=== PATIENT | female | born 1985 | race Hispanic/Latino ===

== ENCOUNTER → 2016-12-08 | Day surgery (SDC) | payer SELFPAY ==
[2016-12-08] VITALS (9 sets, daily range): BP systolic 91–117; BP diastolic 44–84; PULSE 58–84; RESP 14–17; O2SAT 98–99
[~2016-12-08] VITALS: Ht 157.5 cm; Wt 66.3 kg
[~2016-12-08] MED LIST: Acetaminophen IV 1,000 MG in IV Premix 1 EACH IV PRN; Dexamethasone 4 mg/mL Inj IVPUSH PRN; EPHEDrine Sulfate 50 mg/mL Inj IVPUSH PRN; HYDROmorphone 0.5 mg/0.5 mL iSecure Syringe IVPUSH PRN; HYDROmorphone 1 mg/mL Inj IVPUSH PRN; IBUP-1827 PO; IODINE TOPICAL ONE; Lactated Ringer's 1,000 ML IV ONE; Lactated Ringer's 1,000 ML IV SCH; Lactated Ringer's 500 ML IV PRN; MetoCLOpramide 5 mg/mL 2 mL Inj IVPUSH PRN; OXYC1TAB24 PO; Ondansetron 2 mg/mL 2 mL Inj IVPUSH PRN; Ondansetron 2 mg/mL 2 mL Inj ONE; Phenylephrine 10,000 mCg/mL Inj IVPUSH PRN; Propofol 10,000 mCg/mL 20 mL Inj ONE; fentaNYL-PF 50 mCg/mL 2 mL Inj IVPUSH PRN; fentaNYL-PF 50 mCg/mL 2 mL Inj ONE
--- NOTE | 2016-12-08 13:55 | PCM.HPANE ---
Patient Data Surgeon Admitting Provider: Attending Provider:Graeme Romero MD Primary Care Physician:Teresa Falk MD Other Provider:[facility] Reason for Visit SISSY-3 Ht/WT & BMI Height (Feet): 5 Height (Inches): 2.00 Weight (Kilograms): 66.300 Body Mass Index 26.00 Allergies Coded Allergies: No Known Allergies (Verified , 11/30/16) Past Anesthesia History Anesthesia History: Denies:: Abnormal Airway, Anesthesia Reactions, Difficult Intubation, Fam Anesthesia Reaction Diabetes History Hx Diabetes?: No MRSA MRSA: No Medications Hypertension Medication: No Home Meds Incl Beta Vinicius: No No Active Prescriptions or Reported Meds History History of ENT Problems?: No HEENT History: Denies:: Abnormal Airway Cataracts Difficult Intubation Dysphagia Glaucoma Hearing Problem Sinus Problem TMJ Denture Type: None Teeth Condition: Within Normal Limits Hx of Heart Problems?: Yes Cardiovascular History: Positive for:: Cardiac Surgery (surgery as child for murmur- at age 4) Heart Murmur (prior hx) Denies:: AICD Abdominal Aortic Aneurism Atrial Fibrillation Edema Hypertension Irregular Heartbeat Pacemaker Peripheral Vascular Rheumatic Fever Thrombophlebitis Valvular Heart Disease (echo 2017- ef 60-65%) Other History/Comments ECHO for heart mumur, benign, normal activity with limitations Hx of Respiratory Problem?: No Respiratory History: Denies:: Asthma COPD Emphysema Oxygen Administration Pneumonia Tuberculosis Use of C-PAP Machine Hx Neurologic Problems?: No Neurological History: Denies:: Alzheimer's Disease CVA Headaches Multiple Sclerosis Parkinson's Disease Seizures Hx of GI Problems?: No Hx of Problems?: No Genitourinary History: Denies:: Kidney Stones Urinary Tract Infection Female Hx: Denies:: Currently (NEG U PREG) Problems with Breasts? Skin History: Denies:: History Skin Disorders? Pressure Ulcers Hx Musculoskeletal Problems?: No Musculoskeletal History: Denies:: Back Injury Degenerative Joint Fibromyalgia Joint Replacement Musculoskeletal Trauma Osteoarthritis Rheumatoid Arthritis Hx of Psycho/Social Problems?: No Psycho Social History: Denies:: Anxiety Hx Depression Hx Surgeries?: Yes (heart surgery as child, partial thyroidectomy) Hx Any Other Health Problems?: Yes Other History: Positive for:: Cancer (SISSY current admission problem) Denies:: Thyroid Disease History Blood Transfusions: Positive for:: Accept Blood Products? Denies:: Blood Transfusions Hx Diabetes: No Hx Alcohol Use: NoHx Substance Use: NoHave You Smoked inLast 12 mo: No Stop/Bang S-Snoring: Do You Snore Loudly: No T-Tired: feel tired, fatigued: No O-Obsered: Observed not breath: No P-Blood Pressure: treated: No B- Body Mass Index > 35 kg/m2: No A- Age over 50: No N- Neck Large Circumference: No G- Gender Male: No CINDY Total Score: 0 Risk Assessment Category Category 1A: Patient has history of documented sleep apnea, and HAS NOT received any narcotic, sedative or anesthesia administration during this stay. Category 1B: Patient has history of documented sleep apnea, and HAS received any narcotic , sedative or anesthesia administration during this stay Category 2: Patient has SUSPECTED Obstructive Sleep Apnea, and HAS received any narcotic , sedative or anesthesia administration during this stay. Category 3: Patient has SUSPECTED Obstructive Sleep Apnea and HAS NOT received narcotic, sedative or anesthesia administration during this stay. Category 4: Outpatient in Procedural Areas with known sleep apnea or who screen positive for High Risk via the STOP/BANG questionnaire. Exam Exam Vital Signs Vital Signs Date Time Temp Pulse Resp B/P Pulse Ox O2 Delivery O2 Flow Rate FiO2 12/08/16 11:40 36.1 61 15 104/68 99 Room Air General Appearance: Alert, Oriented X3, Cooperative HEENT/AIRWAY: MP 2 Lungs: Clear to Auscultation Heart: Exam Unremarkable Meds/Labs/Diagnostics Admission Meds Current Medications Lactated Ringer's (Lr) 1,000 ml @ ud STK-MED ONCE IV Last administered on 12/08t 12:25; Start 12/08/16 at 12:25; Stop 12/08/16 at 12:26; Status DC Plan Impression Patient chart reviewed, patient interviewed and anesthestic plan with risks, benefits, and alternatives discussed, and informed consent obtained. ASA Physical Status: ASA2 Mod Systemic Disease Anesthetic Plan: GA Bene/Risks/Altern/Consents: Yes HP Complete Prior to Induction: Yes Jacky Pastrana MD Dec 08, 2016 13:55
--- NOTE | 2016-12-08 14:10 | PCM.DIGYN ---
Surgical Discharge Instruction Dates of Hospitalization Date of Hospital Admission Providers Admitting Physician: Primary Care Physician: Teresa Falk MD Attending Physician: Graeme Romero MD Diagnosis at Time of Discharge Diagnosis at time of discharge SISSY 3 status post LEEP on 12/08/16 Problems: Diet Discharge Diet: No restrictions Activity Discharge Activity-General: No lifting >15 pounds for 2 weeks, Other (Pelvic rest (no sex, tampon and douching) ) Dressing and Incisional Care Hygiene: May shower (Daily ) Follow Up Plan Follow-up Provider (F9): Graeme Romero MD Follow-up appointment: Weeks (Two) Call your provider for: Fever, Chills, Shortness of breath, Vomitting, Drainage at incision, Heavy vaginal bleeding, Wound redness, Increasing pain Graeme Romero MD Dec 08, 2016 14:10
--- NOTE | 2016-12-13 14:08 | PATH ---
SURGICAL PATHOLOGY Attending Physician:Graeme Romero CASE STATUS: Signed Out PATIENT NAME: STEPHANIE KINGSLEY PID: [id number] : 1985 DATE COLLECTED:12/08/2016 00:00 SPECIMEN: 1: Cervix, Leep 2: Cervix, Leep 3: Cervical, Cone 4: Endocervix, Curettage CLINICAL HISTORY: SISSY-3, EXCISION 1). ANTERIOR CERVICAL LIP - SUTURE AT 12:00 2). POSTERIOR CERVICAL LIP - SUTURE AT 6:00 3). ENDOCERVICAL CANAL IN TWO PIECES 4). ENDOCERVICAL CURETTINGS FINAL DIAGNOSIS: 1.ANTERIOR CERVICAL LIP, LEEP: TRANSFORMATION ZONE, NEGATIVE FOR NEOPLASM. 2.POSTERIOR CERVICAL LIP, LEEP: TRANSFORMATION ZONE WITH EXTENSIVE CAUTERY ARTIFACT AND FOCI SUSPICIOUS FOR AT LEAST INTERMEDIATE GRADE SQUAMOUS INTRAEPITHELIAL LESION (SISSY 2) WITH GLAND NECK INVOLVEMENT; SEE COMMENT. 3.ENDOCERVICAL CANAL, EXCISION: ENDOCERVIX, NEGATIVE FOR NEOPLASM. 4.ENDOCERVIX, CURETTAGE: ENDOCERVICAL AND ENDOMETRIAL MUCOSA WITH NO EVIDENCE OF NEOPLASM. ICD10 D06.9 NOTE: In the posterior cervical lip specimen from 3 o' clock to 6 o' clock there is extensive cautery artifact and a predominately denuded surface epithelium. There are few foci of endocervical glands replaced by atypical squamous epithelium suspicious for at least intermediate grade squamous intraepithelial neoplasm (SISSY 2); however, the overlying surface is partially to fully denuded, precluding accurate grading. These changes are present at the endocervical margins; however, given that the additionally submitted endocervical tissue (part 3) is negative for neoplasm, the final margin is considered negative. Additional step-sections are examined in each part. As part of a routine quality director, Dr. Gu has reviewed the slides from part 2A and agrees with the above interpretation. GROSS DESCRIPTION: The specimens are received in formalin, labeled with the patient's name, and sublabeled as the following: (1) anterior cervical lip, suture 12:00; (2) posterior cervical lip, suture at 6:00; (3) endocervical cone; (4) endocervical curetting. (1) The specimen consists of cervical tissue (1.8 x 1.2 x 0.5 cm). A 2 tailed blue suture indicates 12:00. The mucosa is montana-pink smooth and shiny. The cut surface is nava-white, focally pink, and smooth. No nodules are masses or lesions are identified. The specimen is serially sectioned and submitted from 9:00. Ink: black-radial; blue-deep. Section code: (1A) 9:00-12:00; (1B) 12:00-3:00. Specimen entirely submitted. (2) The specimen consists of cervical tissue (2.0 x 1.1 x 0.5 cm). A 2 tailed blue suture indicates 6:00. The mucosa is montana-pink smooth and shiny. The cut surface is nava-pink and smooth. No nodules are masses or lesions are identified. The specimen is serially sectioned and submitted from 3:00. Ink: black-radial; blue-deep. Section code: (2A) 3:00-6:00; (2B) 6:00-9:00. Specimen entirely submitted. (3) The specimen consists of 2 pieces of endocervical tissue (piece #2-2.4 x 1.2 x 0.5 cm; piece #2-1.5 x 1.2 x 0.3 cm). The tissue cannot be oriented therefore the entire specimen is inked blue. The cut surface is nava-white, focally pink and smooth. No nodules are masses or lesions are identified. Section code: (3A) piece #1, serially sectioned; (3B) piece #2, serially sectioned. Specimen entirely submitted. (4) The specimen consists of multiple fragments of montana glistening semitranslucent tissue (2.5 x 2.0 x <0.1 cm in aggregate). Section code: (4A) tissue. Specimen entirely submitted. 12/09/16 MICRO DESCRIPTION: See diagnosis. ICD-9 CODES: CPT CODES: 1: 23853 2: 07334 3: 41761 4: 49820 Electronically Signed Out Miguel Angel Gr MD, Ph.D. [facility] [address], [place] [address] Technical component performed at [facility], [facility] [address], [place], [address]
--- NOTE | 2016-12-15 14:32 | OP ---
[address] [address] OPERATIVE REPORT PATIENT: ZAINAB KINGSLEY : 1985 MR#: [id number] ADMIT: 12/08/2016 JOB ID: [id number] DATE OF SURGERY: 12/08/2016 SURGEON: Graeme Romero MD DIVISION ROADMASTER: Lee Davis MD PREOPERATIVE DIAGNOSIS(ES): Cervical intraepithelial neoplasia (SISSY) 3. PROCEDURE: Loop electrosurgical excision procedure (LEEP). COMPLICATIONS: None. IMPLANTS: None. BLOOD PRODUCT ADMINISTRATION: None. ESTIMATED BLOOD LOSS: 10 mL. ANESTHESIA: General. SPECIMEN REMOVED: 1. Endocervical curetting. 2. Anterior cervical lip of the LEEP cervical cone tagged at 12 o'clock. 3. Posterior cervical lip of the LEEP cervical cone tagged at 6 o'clock. 4. Endocervical canal. POSTOPERATIVE DIAGNOSIS(ES): Cervical intraepithelial neoplasia (SISSY) 3. FINDINGS: After applying Lugol solution, decreased uptake of the Lugol solution at the endocervix and decreased uptake at the transformation zone. Uniform uptake at the ectocervix. PROCEDURE: After informed consent was obtained, the patient was taken to the operation room. She was placed under general anesthesia. She was prepped and draped in usual sterile fashion. Heavy weighted speculum was placed in the posterior vaginal vault. Anterior retractor was placed with good visualization of the cervix. The cervix was then painted with Lugol solution. Decreased uptake was noted circumferentially at the endocervix in the transformation zone area, with uniform uptake at the ectocervix. LEEP procedure was performed. Secondary to the large size of the specimen,using size 2 cm x 0.8 cm loop electrode the anterior cervical lip was excised, then followed by the posterior cervical lip. The patient had an intrauterine device in place. An attempt to save the IUD strings by protecting the intrauterine device strings with a long sterile Q-tip shaft, but the strings were cut during the posterior cervical lip conization. Endocervical curettings was obtained. Then the endocervical canal specimen in top-hat fashion was obtained using 1.5 cm x 1.2 cm loop electrode. Hemostasis was assured with rollerball cautery. The cervix was hemostatic. Anterior tenaculum was removed. The site of the tenaculum hemostasis was obtained by Monsel solution. All instruments were removed from the vagina. The patient tolerated the procedure well. Graeme Sharp MD was present and scrubbed for the entire procedure. JACKIE
== END | disposition home or self-care (01) ==
LOC: SAS 11:19
PROVIDERS: ATTEND Obstetrics & Gynecology
DX: N87.1 Moderate cervical dysplasia (principal); R01.1 Cardiac murmur, unspecified; F32.9 Major depressive disorder, single episode, unspecified
CPT/HCPCS: 36415; 57522; 86850; J0131; J1885; J2250; J2405; J2704; J3010; J7120